=== PATIENT | male | born 1990 | race Caucasian/White ===

== ENCOUNTER 2017-03-11 17:02 | Outpatient (CLI) | payer BC ==
[2017-03-11 17:44] LABS: #Basophils 0.1 thou/uL (0.0-0.2); #Eosinphils 0.6 thou/uL (0.0-0.7); #Lymphocytes 2.7 thou/uL (1.20-3.40); #Monocytes 0.7 thou/uL (0.11-0.59); %Eosinophils 6.3 % (0.0-10.0); %Lymphocytes 30.1 % (21.0-51.0); %Monocytes 7.4 % (0.0-10.0); Hematocrit 45.1 % (42.0-52.0); Mean Platelet Volume 6.5 fL (7.4-10.4); Red Blood Cell (RBC) Count 4.85 mill/uL (4.70-6.10)
[2017-03-11 18:04] LABS: Anion Gap 12 mmol/L (10-20); BUN (Urea Nitrogen) 11 mg/dL (8.9-20.6); Calc. Creatinine Clearance 0 mL/min (70-130); Calcium 9.3 mg/dL (7.8-10.44); Carbon Dioxide 26 mmol/L (22-29); Chloride 104 mmol/L (98-107); Estimated GFR-MDRD Greater than 90
== END 2017-03-11 17:03 | disposition home or self-care (01) ==
LOC: LABBT 17:02
PROVIDERS: ATTEND Orthopaedic Surgery
DX: Z01.812 Encounter for preprocedural laboratory examination (principal); M19.011 Primary osteoarthritis, right shoulder
CPT/HCPCS: 80048; 85025

== ENCOUNTER 2017-03-15 10:19 | Day surgery (SDC) | payer BC ==
[2017-03-11 17:36] VITALS: BMI 28.1
[2017-03-15] MEDS ORDERED: Midazolam HCl 2 mg/2 ml Vial ONE (10:44)
[2017-03-15] MEDS ORDERED: Fentanyl 100 MCG/2 ML VIAL ONE ×3 (10:44→15:31)
[2017-03-15] MEDS ORDERED: Fentanyl 250 MCG/5 ML VIAL ONE (13:08)
[2017-03-15] MEDS ORDERED: Bupivacaine PF 0.5% 30 ML VIAL ONE (13:37)
[2017-03-15] MEDS ORDERED: Meperidine HCl/PF 25 MG/ML VIAL ONE (14:52)
[2017-03-15] MEDS ORDERED: HYDROcodone/Acetaminophen 5/325 mg Tablet ONE (16:31)
--- NOTE | 2017-03-15 16:47 | OP ---
PREOPERATIVE DIAGNOSES: Acromioclavicular joint arthropathy and impingement syndrome, right shoulde r. POSTOPERATIVE DIAGNOSES: Acromioclavicular joint arthropathy and impingement syndrome, right should er. SURGEON: Mik Cash M.D. ANESTHESIA: General. BLOOD LOSS: Minimal. SPECIMEN: None. DRAINS: None. COMPLICATIONS: None. DESCRIPTION OF THE PROCEDURE: The patient placed in left lateral decubitus position. Right arm was placed in traction. The arm was prepped and draped in the usual sterile fashion. Scope was placed in subacromial bursa and very extensive bursitis. A complete bursectomy was performed. CA ligamen t was taken down. Anterior and inferior acromioplasty was performed with an arthroscopic acromioniz er allan. I exposed the distal clavicle and acromioclavicular joint. I removed the inferior capsule . I created an anterior portal and resected about 8 mm of the distal clavicle using an arthroscopic acromionizer allan. I did leave the dorsal ligaments intact. The shoulder was then drained. Heladio ls closed with nylon suture.
== END 2017-03-15 17:00 ==
LOC: SDC 10:19
PROVIDERS: ATTEND Orthopaedic Surgery
PROC: 0PB94ZZ Excision of Right Clavicle, Percutaneous Endoscopic Approach (ICD-10-PCS; principal; 2017-03-15)
PROC: 0RNJ4ZZ Release Right Shoulder Joint, Percutaneous Endoscopic Approach (ICD-10-PCS; principal; 2017-03-15)
DX: M19.011 Primary osteoarthritis, right shoulder (principal); M75.41 Impingement syndrome of right shoulder; M71.9 Bursopathy, unspecified; F90.0 Attention-deficit hyperactivity disorder, predominantly inattentive type; Z79.899 Other long term (current) drug therapy; Z88.5 Allergy status to narcotic agent; Z88.8 Allergy status to other drugs, medicaments and biological substances; Z91.040 Latex allergy status
CPT/HCPCS: 96374; G8984-GP-CK; G8985-GP-CK; G8986-GP-CK; J2175; J2250; J2270; J3010; S0020

== ENCOUNTER 2021-04-18 07:37 | Emergency (ER) | payer SELFPAY | END 2021-04-18 07:53 | disposition home or self-care (01) | LOC: ERS 07:37 | DX: K02.9 Dental caries, unspecified (principal) | CPT/HCPCS: 99283 ==

== ENCOUNTER 2023-05-29 13:59 | Emergency (ER) | payer SELFPAY ==
[2023-05-29] MEDS ORDERED: Acetaminophen 500 MG TAB ONE (15:34)
[2023-05-29] MEDS ORDERED: Ibuprofen 200 MG TAB ONE (15:35)
[2023-05-29 16:13] LABS: SARS-CoV-2 NAA Rapid Test Not Detected (NotDetected)
== END 2023-05-29 16:35 | disposition home or self-care (01) ==
LOC: ERS 13:59
DX: J06.9 Acute upper respiratory infection, unspecified (principal); Z20.822 Contact with and (suspected) exposure to COVID-19; Z87.891 Personal history of nicotine dependence
CPT/HCPCS: 99283

== ENCOUNTER 2023-06-25 09:49 | Emergency (ER) | payer SELFPAY ==
[2023-06-25] MEDS ORDERED: Acetaminophen 500 MG TAB ONE (10:23)
[2023-06-25 11:18] LABS: SARS-CoV-2 NAA Rapid Test DETECTED (NotDetected)
== END 2023-06-25 11:42 | disposition home or self-care (01) ==
LOC: ERS 09:49
DX: U07.1 COVID-19 (principal); Z87.891 Personal history of nicotine dependence
CPT/HCPCS: 99283